=== PATIENT | female | born 2005 | race Caucasian/White ===

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

== ENCOUNTER 2024-03-05 09:15 | Emergency (ER) | payer OTHER, BC, SELFPAY ==
[2024-03-05 10:00] VITALS: BP 111/73; PULSE 65; RESP 18; TEMP 37.2; O2SAT 99; BMI 44.9
[2024-03-05 10:11] LABS: UTC Strep Screen (Rapid) Negative (Negative)
--- NOTE | 2024-03-05 10:31 | ED_ITS ---
Discharge Plan Disposition Patient Disposition: Home, Self-Care Condition: Good Prescriptions Prescriptions: New cefdinir 300 mg capsule 300 mg PO Q12H 10 Days Qty: 20 0RF No Action sertraline 50 mg tablet 50 mg PO DAILY Patient Comments: TAKE ONE (1) TABLET BY MOUTH EVERY DAY Referrals Follow up/Referrals: Armida Gutierrez APRN [Primary Care Provider] - See instructions Activity Restrictions/Add. Instructions Additional Instructions/Restrictions: Call and make an appointment with primary care provider for a follow up. Take medication as prescribed. If symptoms worsen, return to the clinic. Clinical Impressions Clinical Impression: Acute cervical lymphadenitis Instructions Patient Instructions: DI for Lymphangitis-Adult Discharge ED Provider: Savita Ferrell [facility] General Stated complaint: swollen face, headache Mode of Arrival: Ambulatory Source of Information: Patient Limitations: No Limitations Time Seen by Provider: 03/05/24 10:31 Description of Symptoms (Recalled from Triage Doc. by RN): Pt's symptoms are swollen lymph nodes, and LEA. HEENT Symptoms (Recalled from RN notes): Yes Resp Symptoms (Recalled from RN notes): No Skin Symptoms (Recalled from RN notes): No MS Symptoms (Recalled from RN notes): No Functional Status (Recalled from RN notes): n/a Related Data Home Medications Medication Instructions Recorded Confirmed sertraline 50 mg tablet 50 mg PO DAILY 03/05/24 03/05/24 Previous Rx's Medication Instructions Recorded cefdinir 300 mg capsule 300 mg PO Q12H 10 days #20 caps 03/05/24 Allergies Allergy/AdvReac Type Severity Reaction Status Date / Time Penicillins Allergy Verified 03/05/24 10:10 Worker's Comp Is this a Worker's Comp case?: No [facility] Disclaimer: The information contained in this section may have been updated after the patient was seen, as this information can be updated by other users. Social History Smoking Status: Never smoker alcohol intake: never current occupational status: employed and student Travel in the last 8 weeks: None ROS Obtained: Yes All systems reviewed & no additional complaints except as documented Constitutional Constitutional: Reports system reviewed and no additional complaints, except as documented and Reports headache(s) Eyes Eyes: Reports system reviewed and no additional complaints, except as documented ENT Ears, Nose, Mouth, and Throat: Reports system reviewed and no additional complaints, except as documented, Reports headache(s), Reports neck mass and Reports neck pain Cardiovascular Cardiovascular: Reports system reviewed and no additional complaints, except as documented Respiratory Respiratory: Reports system reviewed and no additional complaints, except as documented Gastrointestinal Gastrointestingal: Reports system reviewed and no additional complaints, except as documented Genitourinary Female Genitourinary: Reports system reviewed and no additional complaints, except as documented Musculoskeletal Musculoskeletal: Reports system reviewed and no additional complaints, except as documented and Reports neck pain Integumentary/Breasts Skin/Breast: Reports system reviewed and no additional complaints, except as documented Neurologic Neurologic: Reports system reviewed and no additional complaints, except as documented and Reports headache(s) Endocrine Endocrine: Reports system reviewed and no additional complaints, except as documented Hematologic/Lymphatic Henatologic/Lymphatic: Reports system reviewed and no additional complaints, except as documented Allergic/Immunologic Allergic/Immunologic: Reports system reviewed and no additional complaints, except as documented Physical Exam General General appearance: alert and in no apparent distress Head Head exam: atraumatic and normocephalic Eye Eye exam: Present normal appearance ENT ENT exam: Present normal exam, normal oropharynx, mucous membranes moist, TM's normal bilaterally and normal external ear exam Neck Neck exam: Present lymphadenopathy Expanded Neck Exam Neck exam focused ED: Present anterior neck swelling Chest Chest inspection: Present normal inspection and symmetric chest wall rise Respiratory Respiratory exam: Present normal lung sounds bilaterally Cardiovascular Cardiovascular exam: Present regular rate, normal rhythm and normal heart sounds Abdominal Exam Abdominal exam: Present soft and normal bowel sounds Extremities Exam Extremities exam: Present normal inspection Back Exam Back exam: Present normal inspection Neurological Exam Neurological exam: Present alert and oriented X3 Psychiatric Psychiatric exam: Present normal affect and normal mood Skin Skin exam: Present warm, dry and intact Lymphatic Lymphatic Findings: other (right cervical adenopathy. Large from behind ear to midway down neck.) Medical Decision Making Hu Inquiry Pt receiving controlled substance: No Vital Signs: 03/05/24 10:00 Temperature 99.0 F Temperature Source Oral Pulse Rate [Right Radial] 65 Respiratory Rate 18 Blood Pressure [Right Arm] 111/73 Blood Pressure Mean [Right Arm] 85 Blood Pressure Source [Right Arm] Automatic Cuff Blood Pressure Position [Right Arm] Sitting 02 Sat by Pulse Oximetry 99 Oxygen Delivery Method Room Air Lab Data Lab results reviewed: Yes I reviewed the patient's lab results. Lab Results 03/05/24 10:03: Strep Scn Rapid Clinic Negative Orders (Tests/Meds): ORDERS Category Date Time Status Strep Screen Confirmation Stat Micro 03/05/24 10:03 Received
[2024-03-05 10:50] VITALS: BP 111/73; PULSE 65; RESP 18; TEMP 37.2; O2SAT 99
--- NOTE | 2024-03-10 08:44 | PC.NURSE ---
Reviewed strep confirmation which is negative. No further action is required.
== END 2024-03-05 10:50 | disposition home or self-care (01) ==
PROVIDERS: Emergency Provider Nurse Practitioner Family; PCP Nurse Practitioner Family
DX: R51.9 Headache, unspecified (principal); L04.0 Acute lymphadenitis of face, head and neck
CPT/HCPCS: 87880; 99212; 99214; G0463